=== PATIENT | female | born 1950 | race Hispanic/Latino ===

== ENCOUNTER 2024-01-27 10:11 | Inpatient (IN) | payer MEDICARE ==
[2024-01-27 10:52] LABS: BASOPHILS # (AUTO) 0.03 K/uL (0.00-0.20); BASOPHILS % (AUTO) 0.4 % (0.0-5.0); EOSINOPHILS # (AUTO) 0.14 K/uL (0.00-0.70); HEMATOCRIT 33.1 % (36-48); IMMATURE GRANULOCYTE ABSOLUTE 0.02 K/uL (0-1); LYMPHOCYTES # (AUTO) 1.9 K/uL (1.0-4.8); LYMPHOCYTES % (AUTO) 27.8 % (21.0-51.0); MEAN CORPUSCULAR HEMOGLOBIN 28.7 pg (27.0-33.0); MEAN CORPUSCULAR HGB CONC 33.8 g/dL (32.0-36.0); MEAN CORPUSCULAR VOLUME 84.9 fL (79-99); MONOCYTES # (AUTO) 0.5 K/uL (0.1-1.0); MONOCYTES % (AUTO) 6.8 % (3.0-13.0); NEUTROPHILS # (AUTO) 4.3 K/uL (1.8-7.7); NEUTROPHILS % (AUTO) 62.7 % (40.0-77.0); PLATELET COUNT (AUTO) 334 K/uL (130-400); RED CELL DISTRIBUTION WIDTH 13.9 % (11.0-15.5); WHITE BLOOD COUNT (AUTO) 6.9 K/uL (4.8-10.8)
[2024-01-27 11:14] LABS: CREATININE 0.9 mg/dL (0.5-1.0); POTASSIUM 4.2 mmol/L (3.5-5.1)
[2024-01-27 11:24] LABS: B-TYPE NATRIURETIC PEPTIDE 21 pg/mL (0-100)
[2024-01-27 11:33] LABS: APPEARANCE,URINE CLOUDY (CLEAR); BILIRUBIN,URINE NEGATIVE (NEGATIVE); COLOR,URINE LIGHT-YELLOW (YELLOW); GLUCOSE, URINE (UA) NEGATIVE (NEGATIVE); KETONES,URINE NEGATIVE (NEGATIVE); LEUKOCYTE ESTERASE ,URINE 250 Leu/uL (NEGATIVE); NITRATE,URINE NEGATIVE (NEGATIVE); OCCULT BLOOD,URINE NEGATIVE (NEGATIVE); PROTEIN,URINE NEGATIVE (NEGATIVE); UROBILINOGEN,URINE 0.2 mg/dL (0.2-1.0)
[2024-01-27 11:39] LABS: ADD UA MICROSCOPIC YES
[2024-01-27 11:44] LABS: BACTERIA,URINE FEW /HPF (None Seen); MUCUS,URINE RARE LPF (None Seen); SQUAMOUS EPITHELIAL CELL,UR FEW /HPF (0-2); WBC,URINE 26-50 /HPF (0-1); YEAST,URINE BUDDING RARE /HPF (None Seen)
[2024-01-27] MEDS: ASPIRIN 325MG TAB PO ONE (11:55)
[2024-01-27] MEDS ORDERED: ZOLPidem TARTrate 5 MG TAB PO PRN (12:30)
[2024-01-27] MEDS ORDERED: guaiFENesin-DM 200/20MG 10ML PO PRN (12:30)
[2024-01-27] MEDS ORDERED: NITROGLYCERIN 0.4 MG SL TAB SL PRN (12:30)
[2024-01-27] MEDS ORDERED: hydrALAZine 20MG/ML VIAL IV PRN (12:30)
[2024-01-27] MEDS ORDERED: GLUCAGON 1MG KIT 1 MG ML IM PRN (12:30)
[2024-01-27] MEDS ORDERED: ketOROlac 15MG/ML VIAL (15MG/ML) IV PRN (12:30)
[2024-01-27] MEDS ORDERED: FAMOTIDINE 20MG VIAL IV PRN (12:30)
[2024-01-27] MEDS ORDERED: morPHINE 2 MG SYG IVP PRN (12:30)
[2024-01-27] MEDS ORDERED: PoTASSium chloRIDE 20MEQ ER 20 MEQ ERTAB PO PRN (12:30)
[2024-01-27] MEDS ORDERED: PoTASSium chl 10% ELIXIR 20MEQ 20 MEQ/15 ML UDCUP PO PRN (12:30)
[2024-01-27] MEDS ORDERED: DiphenhydrAMINE HCL 50 MG/ML VIAL IV PRN (12:30)
[2024-01-27] MEDS ORDERED: acetaMINOPHEN 325 MG TAB PO PRN ×2 (12:30)
[2024-01-27] MEDS ORDERED: MAG/ALUM/SIMETH 30 ML UDCUP PO PRN (12:30)
[2024-01-27] MEDS ORDERED: cefTRIAXone 1G VIAL 2 GM in 0.9%NACL 100ML 100 ML IV SCH (12:30)
[2024-01-27] MEDS ORDERED: PoTASSium chloRIDE 10MEQ/100ML 100 ML IV PRN (12:30)
[2024-01-27] MEDS ORDERED: DEXTROSE 50%-WATER 50 ML DISP.SYRIN IV PRN (12:30)
[2024-01-27] MEDS ORDERED: ondanSETRON 4MG INJ IV PRN (12:30)
[2024-01-27 14:00] VITALS: BP 168/87; PULSE 64; RESP 18; TEMP 97.8
[2024-01-27] MEDS ORDERED: PHARMACY COMMUNICATION MISC SCH (14:00)
[2024-01-27] MEDS ORDERED: PoTASSium chloRIDE 10MEQ SR 10 MEQ/TAB TAB.SR.24H PO PRN (14:30)
[2024-01-27 16:00] VITALS: BP 142/58; PULSE 70; RESP 18; TEMP 97.6
[2024-01-27] MEDS: CEFTRIAXONE 2GM VIAL IVPB SCH (16:50)
[2024-01-27] MEDS: INSULIN humuLIN R 100 UNIT/ML 3ML SQ SCH (16:51)
[2024-01-27 20:00] VITALS: BP 168/87; PULSE 64; RESP 18; TEMP 97.6; O2SAT 96
[2024-01-27] MEDS ORDERED: METF-446 PO (20:36)
[2024-01-27] MEDS ORDERED: LEVO50TA6 PO (20:36)
[2024-01-27] MEDS ORDERED: ATOR10 PO (20:36)
[2024-01-27] MEDS ORDERED: GLIM1TAB56 PO (20:36)
[2024-01-27] MEDS: HEParin 5,000 UNIT VIAL SQ SCH (21:00)
[2024-01-27] MEDS: FAMOTIDINE 20MG VIAL IV SCH (21:00)
[2024-01-27] MEDS: atorVAStatin 40 MG TABLET PO SCH (21:00)
[2024-01-28] VITALS (8 sets, daily range): BP systolic 130–149; BP diastolic 64–77; PULSE 63–75; RESP 18; TEMP 97.4–98; O2SAT 96–97
[2024-01-28 05:31] LABS: BASOPHILS # (AUTO) 0.04 K/uL (0.00-0.20); BASOPHILS % (AUTO) 0.6 % (0.0-5.0); EOSINOPHILS # (AUTO) 0.22 K/uL (0.00-0.70); EOSINOPHILS % (AUTO) 3.3 % (0.0-8.0); HEMATOCRIT 32.6 % (36-48); IMMATURE GRANULOCYTE ABSOLUTE 0.02 K/uL (0-1); LYMPHOCYTES # (AUTO) 2.3 K/uL (1.0-4.8); LYMPHOCYTES % (AUTO) 34.7 % (21.0-51.0); MEAN CORPUSCULAR HEMOGLOBIN 27.6 pg (27.0-33.0); MEAN CORPUSCULAR HGB CONC 32.2 g/dL (32.0-36.0); MEAN CORPUSCULAR VOLUME 85.8 fL (79-99); MONOCYTES # (AUTO) 0.5 K/uL (0.1-1.0); MONOCYTES % (AUTO) 7.2 % (3.0-13.0); NEUTROPHILS # (AUTO) 3.6 K/uL (1.8-7.7); NEUTROPHILS % (AUTO) 53.9 % (40.0-77.0); PLATELET COUNT (AUTO) 333 K/uL (130-400); RED CELL DISTRIBUTION WIDTH 14.2 % (11.0-15.5); WHITE BLOOD COUNT (AUTO) 6.7 K/uL (4.8-10.8)
[2024-01-28 05:53] LABS: ALBUMIN 3.3 g/dL (3.5-5.0); BILIRUBIN,DIRECT 0.1 mg/dL (0.0-0.3); BILIRUBIN,TOTAL 0.3 mg/dL (0.2-1.0); CREATININE 0.9 mg/dL (0.5-1.0); MAGNESIUM 1.1 mg/dL (1.80-2.40); POTASSIUM 4.4 mmol/L (3.5-5.1); TOTAL PROTEIN, SERUM 7.4 g/dL (6.0-8.3)
[2024-01-28 05:58] LABS: HEMOGLOBIN A1C 8.1 % (4.0-6.0)
[2024-01-28] MEDS: MAGNESIUM 2GM PREMIX 50ML 50 ML IV PRN (06:56)
[2024-01-28] MEDS: cloPIDOgrel 75MG TAB PO SCH (09:28)
[2024-01-28] MEDS: ASPIRIN 81 MG EC TAB PO SCH (09:28)
[2024-01-28] MEDS ORDERED: MAGNESIUM 2GM PREMIX 50ML 50 ML IV SCH (13:00)
[2024-01-29] VITALS (7 sets, daily range): BP systolic 112–147; BP diastolic 54–72; PULSE 69–77; RESP 18–20; TEMP 97.6–98.4; O2SAT 96–98
[2024-01-29 05:11] LABS: HEMATOCRIT 32.9 % (36-48); MEAN CORPUSCULAR HEMOGLOBIN 28.5 pg (27.0-33.0); MEAN CORPUSCULAR HGB CONC 33.1 g/dL (32.0-36.0); MEAN CORPUSCULAR VOLUME 86.1 fL (79-99); RED BLOOD CELL COUNT(AUTO) 3.82 MIL/uL (4.00-5.50); WHITE BLOOD COUNT (AUTO) 9.2 K/uL (4.8-10.8)
[2024-01-29 05:31] LABS: MAGNESIUM 1.4 mg/dL (1.80-2.40); POTASSIUM 4.5 mmol/L (3.5-5.1)
[2024-01-29] MEDS: amLODIPine 5 MG TAB PO SCH (09:54)
[2024-01-30] VITALS (7 sets, daily range): BP systolic 125–157; BP diastolic 60–80; PULSE 63–78; RESP 17–20; TEMP 98.1–98.6; O2SAT 100
[2024-01-30 05:18] LABS: HEMATOCRIT 33.3 % (36-48); MEAN CORPUSCULAR HEMOGLOBIN 28.2 pg (27.0-33.0); MEAN CORPUSCULAR HGB CONC 32.4 g/dL (32.0-36.0); MEAN CORPUSCULAR VOLUME 86.9 fL (79-99); RED BLOOD CELL COUNT(AUTO) 3.83 MIL/uL (4.00-5.50); RED CELL DISTRIBUTION WIDTH 14.2 % (11.0-15.5); WHITE BLOOD COUNT (AUTO) 7.8 K/uL (4.8-10.8)
[2024-01-30 05:25] LABS: CREATININE 0.9 mg/dL (0.5-1.0); POTASSIUM 4.3 mmol/L (3.5-5.1)
[2024-01-30] MEDS ORDERED: AMLO5TAB4 PO (11:37)
[2024-01-30] MEDS ORDERED: CLOP-31 PO (11:37)
[2024-01-30] MEDS ORDERED: ATOR40TA69 PO (11:37)
[2024-01-30] MEDS ORDERED: AEC81 PO (11:37)
[2024-01-30] MEDS: acetaMINOPHEN 325 MG TAB PO PRN (23:49)
[2024-01-31] VITALS: BP 148/76; PULSE 79; RESP 16; TEMP 98.3
[2024-01-31 04:00] VITALS: BP 121/60; PULSE 71; RESP 16; TEMP 98.3
[2024-01-31 08:00] VITALS: BP 138/69; PULSE 67; RESP 18; TEMP 97.9
[2024-01-31 08:45] VITALS: O2SAT 99
[2024-01-31] MEDS: LACTULOSE 20 GM/30 ML UDCUP PO PRN (08:51)
[2024-01-31 12:00] VITALS: BP 136/68; PULSE 77; RESP 20; TEMP 97.6
== END 2024-01-31 16:45 | DRG 65 ==
LOC: EDH 10:11 → EDHIP 12:23 → 3DH 14:00
PROVIDERS: ADMIT Internal Medicine; ATTEND Internal Medicine
DX: I63.512 Cerebral infarction due to unspecified occlusion or stenosis of left middle cerebral artery (principal); E87.1 Hypo-osmolality and hyponatremia; N30.00 Acute cystitis without hematuria; I63.81 Other cerebral infarction due to occlusion or stenosis of small artery; I10 Essential (primary) hypertension; E11.649 Type 2 diabetes mellitus with hypoglycemia without coma; D64.9 Anemia, unspecified; E03.9 Hypothyroidism, unspecified; K29.70 Gastritis, unspecified, without bleeding; E78.5 Hyperlipidemia, unspecified; B96.89 Other specified bacterial agents as the cause of diseases classified elsewhere; Z90.49 Acquired absence of other specified parts of digestive tract; Z79.899 Other long term (current) drug therapy; Z79.02 Long term (current) use of antithrombotics/antiplatelets
CPT/HCPCS: 36415; 70450; 70551; 71045; 80048; 80076; 81001; 82550; 82948; 83036; 83605; 83735; 83880; 84145; 84484; 85025; 85027; 87086; 87186; 92522; 92610; 93005; 93306; 93880; 99291; G0378; J0360; J0696; J1644; J1815; J1885; J3475; J3490